=== PATIENT | male | born 1935 | race Caucasian/White ===

== ENCOUNTER 2021-04-24 19:43 | Emergency (ER) | payer MEDICARE, OTHER ==
[2021-04-24] MEDS ORDERED: Morphine 4 MG/ML VIAL ONE ×3 (21:31→22:46)
[2021-04-24] MEDS ORDERED: Dextrose 5 %-0.45 % NaCl 1,000 ML ONE (22:46)
== END 2021-04-24 23:01 | disposition short-term general hospital (02) ==
LOC: MADERS 19:43
DX: S72.141A Displaced intertrochanteric fracture of right femur, initial encounter for closed fracture (principal); S32.019A Unspecified fracture of first lumbar vertebra, initial encounter for closed fracture; S43.401A Unspecified sprain of right shoulder joint, initial encounter; I48.91 Unspecified atrial fibrillation; E11.9 Type 2 diabetes mellitus without complications; I10 Essential (primary) hypertension; Z79.82 Long term (current) use of aspirin; Z79.899 Other long term (current) drug therapy; W19.XXXA Unspecified fall, initial encounter
CPT/HCPCS: 72100; 96374; 96376; J2270; J7042